=== PATIENT | male | born 1955 | race Caucasian/White ===

== ENCOUNTER → 2023-11-08 06:34 | Day surgery (SDC) | payer BC, SELFPAY | LOC: GI 06:34 | PROVIDERS: ATTENDING PHYSICIAN Internal Medicine Gastroenterology | DX: R63.4 Abnormal weight loss (principal); R10.9 Unspecified abdominal pain; K31.89 Other diseases of stomach and duodenum; K29.80 Duodenitis without bleeding | CPT/HCPCS: 43239; 88305; 88341; 88342; 88365 ==

== ENCOUNTER → 2024-04-10 06:38 | Day surgery (SDC) | payer BC, SELFPAY | LOC: GI 06:38 | PROVIDERS: ATTENDING PHYSICIAN Internal Medicine Gastroenterology | DX: R19.4 Change in bowel habit (principal); K64.8 Other hemorrhoids; K57.30 Diverticulosis of large intestine without perforation or abscess without bleeding; D12.3 Benign neoplasm of transverse colon; D12.5 Benign neoplasm of sigmoid colon; K63.5 Polyp of colon | CPT/HCPCS: 45385; 45380; 88305 ==